=== PATIENT | female | born 1930 | race Caucasian/White ===

== ENCOUNTER 2018-02-09 10:06 | Inpatient (IN) | payer OTHER, MEDICAID ==
--- NOTE | 2018-02-09 10:15 | EDPHY ---
H & P Stated Complaint: fall, difficulty ambulating Time Seen by Provider: 02/09/18 10:08 HPI/ROS: CHIEF COMPLAINT: Left hip pain HISTORY OF PRESENT ILLNESS: The patient is an 87-year-old female who fell on Friday at home. She has had pain in her left hip ever since. She has been able to take a couple of steps with assistance. Today however she stated that it hurt too bad to get out of bed and had bowel movement in her bed. When paramedics arrived she had pain with movement and transfer. They gave her fentanyl after which she became sleepy and hypoxic and eventually vomited. They do not think that she aspirated. Her son is here with her and states that her primary complaint over last couple of days has been left hip and thigh pain. She is hypoxic here paramedics states that she was not hypoxic before the fentanyl. Severity: Moderate Modifying factors: None REVIEW OF SYSTEMS: Constitutional: denies: chills, fever, recent illness, recent injury EENTM: denies: blurred vision, double vision, nose congestion Respiratory: denies: cough, shortness of breath Cardiac: denies: chest pain, irregular heart rate, lightheadedness, palpitations Gastrointestinal/Abdominal: denies: abdominal pain, diarrhea, nausea, vomiting, blood streaked stools Genitourinary: denies: dysuria, frequency, hematuria, pain Musculoskeletal: See HPI Skin: denies: lesions, rash, jaundice, bruising Neurological: denies: headache, numbness, paresthesia, tingling, dizziness, weakness Hematologic/Lymphatic: denies: blood clots, easy bleeding, easy bruising Immunologic/allergic: denies: HIV/AIDS, transplant 10 systems reviewed and negative except as noted EXAM: GENERAL: Vomit on clothing, obese and in no acute distress. HEAD: Atraumatic, normocephalic. EYES: Pupils equal round and reactive to light, extraocular movements intact, sclera anicteric, conjunctiva are normal. ENT: TMs normal, nares patent, oropharynx clear without exudates. Moist mucous membranes. NECK: Normal range of motion, supple without lymphadenopathy or JVD. LUNGS: Breath sounds clear to auscultation bilaterally and equal. No wheezes rales or rhonchi. HEART: Regular rate and rhythm without murmurs, rubs or gallops. ABDOMEN: Soft, nontender, normoactive bowel sounds. No guarding, no rebound. No masses appreciated. BACK: No CVA tenderness, no spinal tenderness, step-offs or deformities EXTREMITIES: Left hip pain with movement or palpation. No obvious swelling, difficult to assess because of obesity. No knee or ankle pain., No clubbing or cyanosis. NEUROLOGICAL: Cranial nerves II through XII grossly intact. Normal speech, normal gait. 5/5 strength, normal movement in all extremities, normal sensation , normal reflexes PSYCH: Normal mood, normal affect. SKIN: Warm, dry, normal turgor, no visible rashes or lesions. Source: Patient Exam Limitations: No limitations - Medical/Surgical History Hx Asthma: No Hx Chronic Respiratory Disease: No Hx Diabetes: Yes Hx Cardiac Disease: No Hx Renal Disease: No Hx Cirrhosis: No Hx Alcoholism: No - Family History Significant Family History: No pertinent family hx - Social History Smoking Status: Never smoked Alcohol Use: Sober Constitutional: Initial Vital Signs Temperature (C) 36.8 C 02/09/18 10:09 Heart Rate 77 02/09/18 10:09 Respiratory Rate 18 02/09/18 10:09 Blood Pressure 140/62 H 02/09/18 10:09 O2 Sat (%) 90 L 02/09/18 10:09 O2 Delivery Mode Room Air O2 (L/minute) 2 Allergies/Adverse Reactions: No Known Allergies Allergy (Verified 02/09/18 11:44) Home Medications: Medication Instructions Recorded Cyanocobalamin [Vitamin B12 (*)] 1,000 mcg PO DAILY 02/09/18 Ergocalciferol [Vitamin D2 (*)] 50,000 unit PO SA 02/09/18 Ibuprofen [Motrin (*)] 200 mg PO DAILY PRN 02/09/18 Sertraline HCl [Zoloft 50mg (*)] 50 mg PO DAILY 02/09/18 Medical Decision Making - Diagnostics Imaging Results: Imaging Impressions Femur X-Ray 02/09/18 10:12 Impression: 1. Acute impacted left femoral neck fracture. 2. Intact femoral shaft. Pelvis X-Ray 02/09/18 10:12 Impression: Acute angulated and impacted left femoral neck fracture. Imaging: Discussed imaging studies w/ call center coordinator Radiologist ED Course/Re-evaluation: We discussed the x-ray results. Will admit to Medicine with orthopedic consultation. Patient is hypoxic while sleep but not awake. I discussed the case with the hospitalist who will admit. Discussed the case with Dr. Klaus hong. He will consult. Differential Diagnosis: Partial list of the Differential diagnosis considered include but were not limited to; pelvic fracture, hip fracture, femur fracture and although unlikely based on the history and physical exam, I also considered pneumonia, urinary tract infection, syncope, head injury. - Data Points Laboratory Results: Laboratory Results 02/09/18 10:15 02/09/18 10:00 02/09/18 02/09/18 02/09/18 10:15 10:15 10:00 WBC 12.10 10^3/uL H 10^3/uL (3.80-9.50) RBC 4.24 10^6/uL 10^6/uL (4.18-5.33) Hgb 13.3 g/dL g/dL (12.6-16.3) Hct 39.9 % % (38.0-47.0) MCV 94.1 fL fL (81.5-99.8) MCH 31.4 pg pg (27.9-34.1) MCHC 33.3 g/dL g/dL (32.4-36.7) RDW 14.0 % % (11.5-15.2) Plt Count 284 10^3/uL 10^3/uL (150-400) MPV 10.5 fL fL (8.7-11.7) Neut % (Auto) 80.2 % H % (39.3-74.2) Lymph % (Auto) 9.3 % L % (15.0-45.0) [place] % (Auto) 9.2 % % (4.5-13.0) Eos % (Auto) 0.4 % L % (0.6-7.6) Baso % (Auto) 0.5 % % (0.3-1.7) Nucleat RBC Rel Count 0.0 % % (0.0-0.2) Absolute Neuts (auto) 9.71 10^3/uL H 10^3/uL (1.70-6.50) Absolute Lymphs (auto) 1.12 10^3/uL 10^3/uL (1.00-3.00) Absolute Monos (auto) 1.11 10^3/uL H 10^3/uL (0.30-0.80) Absolute Eos (auto) 0.05 10^3/uL 10^3/uL (0.03-0.40) Absolute Basos (auto) 0.06 10^3/uL 10^3/uL (0.02-0.10) Absolute Nucleated RBC 0.00 10^3/uL 10^3/uL (0-0.01) Immature Gran % 0.4 % % (0.0-1.1) Immature Gran # 0.05 10^3/uL 10^3/uL (0.00-0.10) PT INR APTT Sodium 137 mEq/L mEq/L (135-145) Potassium 4.0 mEq/L mEq/L (3.5-5.2) Chloride 108 mEq/L mEq/L (97-110) Carbon Dioxide 20 mEq/l L mEq/l (22-31) Anion Gap 9 mEq/L mEq/L (6-14) BUN 18 mg/dL mg/dL (7-23) Creatinine 0.6 mg/dL mg/dL (0.6-1.0) Estimated GFR > 60 Glucose 168 mg/dL H mg/dL (70-100) Hemoglobin A1c Pending Estim Average Glucose Pending Calcium 8.3 mg/dL L mg/dL (8.5-10.4) 02/09/18 10:00 WBC RBC Hgb Hct MCV MCH MCHC RDW Plt Count MPV Neut % (Auto) Lymph % (Auto) [place] % (Auto) Eos % (Auto) Baso % (Auto) Nucleat RBC Rel Count Absolute Neuts (auto) Absolute Lymphs (auto) Absolute Monos (auto) Absolute Eos (auto) Absolute Basos (auto) Absolute Nucleated RBC Immature Gran % Immature Gran # PT 15.3 SEC H SEC (12.0-15.0) INR 1.19 H (0.83-1.16) APTT 31.7 SEC SEC (23.0-38.0) Sodium Potassium Chloride Carbon Dioxide Anion Gap BUN Creatinine Estimated GFR Glucose Hemoglobin A1c Estim Average Glucose Calcium Medications Given: Discontinued Medications Hydromorphone HCl (Dilaudid) 0.25 mg IVP EDNOW ONE Stop: 02/09/18 12:20 Last Admin: 02/09/18 12:21 Dose: 0.25 mg Departure - Departure Disposition: [facility] Clinical Impression: Closed left hip fracture Qualifiers: Encounter type: initial encounter Qualified Code(s): S72.002A - Fracture of unspecified part of neck of left femur, initial encounter for closed fracture Condition: Fair
[2018-02-09 10:35] LABS: PLATELET COUNT 284 10^3/uL (150-400)
[2018-02-09 10:48] LABS: INR 1.19 (0.83-1.16); PROTIME(PATIENT) 15.3 SEC (12.0-15.0)
[2018-02-09] MEDS ORDERED: HYDROmorphONE/DILAUDID 2 MG/ML INJ IVP ONE (12:19)
[2018-02-09] MEDS ORDERED: HYDROmorphONE/DILAUDID 1 MG/ML INJ ONE (12:20)
[2018-02-09] MEDS ORDERED: HYDROmorphONE/DILAUDID 1 MG/ML INJ IVP PRN (12:22)
[2018-02-09] MEDS ORDERED: ONDANSETRON 4 MG/2 ML VIAL IVP PRN (12:22)
[2018-02-09] MEDS ORDERED: ACETAMINOPHEN 325 MG TAB PO PRN (12:22)
[2018-02-09] MEDS ORDERED: ONDANSETRON DISINTEGRATING 4 MG TAB PO PRN (12:22)
[2018-02-09] MEDS ORDERED: oxyCODONE IR 5 MG TAB PO PRN ×2 (12:22→21:15)
--- NOTE | 2018-02-09 14:12 | PDGENHP ---
History and Physical - Chief Complaint Left hip pain - History of Present Illness 87 y/o female with history of dementia presents to the emergency room after sustaining a mechanical fall on Friday. This is my first encounter with the pt and she was evaluated in the emergency room with her son, Cristi, at the bedside. She is seen lying supine, sleeping but easy to arouse, wearing 2L NC sating at 92-93%. She does not normally wear oxygen. She is a poor historian and Cristi was able to give details as to her injury. On Friday night, she got up from the couch to lock the door and as she was coming back to the couch and started to sit down, she lost her balance and sat down/fell down on the floor. She landed awkwardly on her left side and with harder impact. She did not hit her head and no LOC. Cristi lives with her and cares for her every day during the evenings and nighttime 16/09. She normally uses a cane or walker to ambulate but after this injury, it took Cristi 2 1/2 hours to get her up off the floor and into bed. On Friday, he managed to get her to sit, stand, and take one or two steps before the pain was too intense and she had to get back into bed where she resided until today. Cristi would feed her in bed and she wore diapers. Early this morning, Cristi heard the pt gurgling and gasping for air - he rolled her over with difficulty and she vomited. The vomit was food from the night before. She vomited once again today while in the ambulance after receiving Fentanyl. She also supposedly became hypoxemic after receiving Fentanyl but this did alleviate some of her hip pain. Femur/pelvis x-ray: acute left femoral neck fracture She is being admitted for further work-up on her acute injury. Vital Signs 127/101 HR: 69 Respirations: 18 Temp: 36.8 O2: 95% History Information - Allergies/Home Medication List Allergies/Adverse Reactions: No Known Allergies Allergy (Verified 02/09/18 11:44) Home Medications: Cyanocobalamin [Vitamin B12 (*)] 1,000 mcg PO DAILY 02/09/18 [Last Taken ] Ergocalciferol [Vitamin D2 (*)] 50,000 unit PO SA 12/17/18 [Last Taken 02/07/18] Ibuprofen [Motrin (*)] 200 mg PO DAILY PRN 02/09/18 [Last Taken Unknown] Sertraline HCl [Zoloft 50mg (*)] 50 mg PO DAILY 02/09/18 [Last Taken 02/06/18] I have personally reviewed and updated: family history, medical history, social history, surgical history Past Medical History: Vitamin D Deficient, hyponatremia, PTSD, dementia, iron- deficient anemia - Surgical History Reports: no pertinent surgical hx - Family History Positive for: cancer Additional family history: Brother - brain cancer. Father - stomach cancer - Social History Smoking Status: Never smoked Alcohol Use: Sober Drug Use: None Additional social history: Son, Cristi, lives with her and cares for her. She also participates in [employer] in [place], she is in daycare Mon-Friday during the morning/afternoon. [facility] RN comes to care for her in the morning and then she is transferred to daycare until 4pm. Cristi is there at home waiting to take over care. Review of Systems Review of Systems: ROS: 10pt was reviewed & negative except for what was stated in HPI & below Constitutional: Reports: recent injury, weakness EENMT: Reports: no symptoms Cardiac: Reports: no symptoms Respiratory: Reports: no symptoms Gastrointestinal: Reports: vomitting Genitourinary: Reports: no symptoms Muscolosketal: Reports: back pain (Chronic), joint pain, joint swelling, muscle pain Skin: Reports: no symptoms Neurological: Reports: pre-existing deficit Hematologic/Lymphatic: Reports: no symptoms Immunologic/Allergy: Reports: no symptoms Physical Exam Physical Exam: Lab data and imaging reviewed Femur/pelvis x-ray: see HPI List WBC: 12.10 INR: 1.19 CO2: 20 BUN/Creatinine: 18/0.6 Na: 137 Ca: 8.3 K: 4.0 Hgb/Hct: 13.3/39.02 November 2017 A1c: 6.4% Temp Pulse Resp BP Pulse Ox 36.8 C 71 18 140/105 H 94 02/09/18 10:12 02/09/18 13:47 02/09/18 13:47 02/09/18 13:47 02/09/18 13:47 O2 (L/minute) 2 Constitutional: appears nourished, obese, uncomfortable Eyes: PERRL, anicteric sclera, EOMI Ears, Nose, Mouth, Throat: hearing normal, ears appear normal, no oral mucosal ulcers, dry mucous membranes Cardiovascular: regular rate and rhythym, no murmur, rub, or gallop, No edema Peripheral Pulses: 1+: dorsalis-pedis (L) (Radial 2+), 2+: dorsalis-pedis (R) ( Radial 2+) Respiratory: other (bilateral lower expiratory wheezes) Gastrointestinal: normoactive bowel sounds, soft, non-tender abdomen, no palpable masses Genitourinary: no bladder fullness, no bladder tenderness Skin: warm, normal color, no rashes or abrasions, no fluctuance, no induration, No mottled Musculoskeletal: joint tenderness (Left hip, L weak DF/PF), pain with ROM Neurologic: sensation intact bilaterally, CN II-XII Intact, other (A&Ox1 (person )) Psychiatric: interacting appropriately, not anxious, poor memory Lymph, Heme, Immunologic: no cervical LAD, no supraclavicular LAD Lab Data & Imaging Review 02/09/18 10:15 02/09/18 10:00 WBC 12.10 10^3/uL (3.80-9.50) H 02/09/18 10:15 RBC 4.24 10^6/uL (4.18-5.33) 02/09/18 10:15 Hgb 13.3 g/dL (12.6-16.3) 02/09/18 10:15 Hct 39.9 % (38.0-47.0) 02/09/18 10:15 MCV 94.1 fL (81.5-99.8) 02/09/18 10:15 MCH 31.4 pg (27.9-34.1) 02/09/18 10:15 MCHC 33.3 g/dL (32.4-36.7) 02/09/18 10:15 RDW 14.0 % (11.5-15.2) 02/09/18 10:15 Plt Count 284 10^3/uL (150-400) 02/09/18 10:15 MPV 10.5 fL (8.7-11.7) 02/09/18 10:15 Neut % (Auto) 80.2 % (39.3-74.2) H 02/09/18 10:15 Lymph % (Auto) 9.3 % (15.0-45.0) L 02/09/18 10:15 [place] % (Auto) 9.2 % (4.5-13.0) 02/09/18 10:15 Eos % (Auto) 0.4 % (0.6-7.6) L 02/09/18 10:15 Baso % (Auto) 0.5 % (0.3-1.7) 02/09/18 10:15 Nucleat RBC Rel Count 0.0 % (0.0-0.2) 02/09/18 10:15 Absolute Neuts (auto) 9.71 10^3/uL (1.70-6.50) H 02/09/18 10:15 Absolute Lymphs (auto) 1.12 10^3/uL (1.00-3.00) 02/09/18 10:15 Absolute Monos (auto) 1.11 10^3/uL (0.30-0.80) H 02/09/18 10:15 Absolute Eos (auto) 0.05 10^3/uL (0.03-0.40) 02/09/18 10:15 Absolute Basos (auto) 0.06 10^3/uL (0.02-0.10) 02/09/18 10:15 Absolute Nucleated RBC 0.00 10^3/uL (0-0.01) 02/09/18 10:15 Immature Gran % 0.4 % (0.0-1.1) 02/09/18 10:15 Immature Gran # 0.05 10^3/uL (0.00-0.10) 02/09/18 10:15 PT 15.3 SEC (12.0-15.0) H 02/09/18 10:00 INR 1.19 (0.83-1.16) H 02/09/18 10:00 APTT 31.7 SEC (23.0-38.0) 02/09/18 10:00 Sodium 137 mEq/L (135-145) 02/09/18 10:00 Potassium 4.0 mEq/L (3.5-5.2) 02/09/18 10:00 Chloride 108 mEq/L (97-110) 02/09/18 10:00 Carbon Dioxide 20 mEq/l (22-31) L 02/09/18 10:00 Anion Gap 9 mEq/L (6-14) 02/09/18 10:00 BUN 18 mg/dL (7-23) 02/09/18 10:00 Creatinine 0.6 mg/dL (0.6-1.0) 02/09/18 10:00 Estimated GFR > 60 02/09/18 10:00 Glucose 168 mg/dL (70-100) H 02/09/18 10:00 Calcium 8.3 mg/dL (8.5-10.4) L 02/09/18 10:00 Assessment & Plan Plan: 87 y/o female presents with a 4-day old left hip fracture, has been immobile since then, and possibly aspirated on vomit. 1. Left Hip fracture -Consult ortho: Dr. Enrique aware -NPO status for now until it is determined whether surgery will take place tonight or tomorrow -Pain control PO/IVP PRN - either Dilaudid IVP, Tylenol PO, or Ultram PO. Cautious using class IIs d/t respiratory depression. -NWB status -Mildly leukocytosis most likely in relation to inflammatory process rather than infectious. Will repeat CBC tomorrow. 2. Possible aspiration -CXR pending -Monitor oxygen levels 3. Diabetes -October 2017 A1c was 6.4%. Will repeat A1c. She currently does not use insulin or PO 4. Dementia -Does not take PO medications for this. Does take Zoloft for depression. Continue to monitor. Per her son Cristi, she brigitte ro. Diet: NPO VTE ppx: SCDs Code: Full Dispo: Admit to obs
[2018-02-09] MEDS ORDERED: NS 500 ML IV SCH (14:30)
--- NOTE | 2018-02-09 15:04 | HOSPPROG ---
Hospitalist Progress Note Assessment/Plan: Patient seen and examined, discussed with Brandie Pfeiffer. I agree with her note. Admitted after fall with hip fracture. Plan OR fixation per Dr Enrique. Objective: Vital Signs Temp Pulse Resp BP Pulse Ox 36.7 C 70 17 167/79 H 95 02/09/18 14:30 02/09/18 14:30 02/09/18 14:30 02/09/18 14:30 02/09/18 14:30 PT 15.3 SEC (12.0-15.0) H 02/09/18 10:00 INR 1.19 (0.83-1.16) H 02/09/18 10:00 ICD10 Worksheet Patient Problems: Problems Problem Status Onset Closed left hip fracture Acute
[2018-02-09] MEDS ORDERED: ceFAZolin 2 GM/DEXTROSE 100 ML IV ONE (15:19)
[2018-02-09] MEDS ORDERED: ROPIVACAINE 0.2% 80 MG, EPINEPHrine 0.2 MG, KETOROLAC TROMETHAMINE 30 MG, morphINE 10 M... IU ONE (15:19)
[2018-02-09] MEDS ORDERED: ACETAMINOPHEN 325 MG TAB PO ONE (15:19)
[2018-02-09] MEDS ORDERED: TRANEXAMIC ACID 1,000 MG in NS 100 ML IV ONE (15:19)
[2018-02-09] MEDS ORDERED: FAMOTIDINE 20 MG TAB PO ONE (15:19)
--- NOTE | 2018-02-09 15:23 | ASMTCMCOM ---
CM Note CM Note Notes: pt is a 87yo F with history of demetia presents after fall/ hip fracture. CM spoke with pt's PCP, Dr. Crump. [facility]. They requested to be contacted prior to discharge. Pt was last at [facility]. Per MD, pt may be appropriate for [facility] unit after discharge from here (depending on MD/Therapy Recommendations). Dr Crump reports she feels pt does best when she is home with her son's support. CM to follow. Plan: TBD (Home with [facility]/ family supports vs [facility]) Date Signed: 02/09/2018 03:22 PM Electronically Signed By:RENUKA Shelton
--- NOTE | 2018-02-09 15:57 | PDMN ---
Medical Necessity Medical necessity: MCG: S600 hip fx fx of femoral neck or S615 hip fx open repair--- ortho consult / sgy pend. pt presents with acute L femoral neck fx. X 4 days ago- immobile X 4 days poss aspirate, PMh Dm, further monitoring and eval needed. anticipate > 2 MN
[2018-02-09] MEDS ORDERED: LR 1,000 ML IV ONE (17:07)
[2018-02-09] MEDS ORDERED: HYDROmorphONE/DILAUDID 2 MG/ML INJ ONE (18:40)
[2018-02-09] MEDS ORDERED: HYDROmorphONE/DILAUDID 2 MG/ML INJ IVP PRN ×2 (19:00→21:15)
[2018-02-09] MEDS ORDERED: PROPOFOL 200 MG/20 ML VIAL ONE (20:01)
[2018-02-09] MEDS ORDERED: fentaNYL 100 MCG/2 ML INJ ONE ×2 (20:02→20:49)
--- NOTE | 2018-02-09 20:05 | PDANEPAE ---
ANE History of Present Illness left hip fracture ANE Past Medical History - Cardiovascular History Hx Hypertension: No Hx Arrhythmias: No Hx Chest Pain: No Hx Coronary Artery / Peripheral Vascular Disease: No Hx CHF / Valvular Disease: No - Pulmonary History Hx COPD: No Hx Asthma/Reactive Airway Disease: No Hx Recent Upper Respiratory Infection: No Hx Oxygen in Use at Home: No Hx Sleep Apnea: No Sleep Apnea Screening Result - Last Documented: Negative - Endocrine History Hx Diabetes: Yes Hypothyroid: No Hyperthyroid: No Obesity: moderate Endocrine History Comment: taken off metformin recently, now on no meds for DM2 - Renal History Hx Renal Disorders: No - Liver History Hx Hepatic Disorders: No - Neurological & Psychiatric Hx Neurological / Psychiatric History Comment: + Dementia - Other Health History Other Health History: +Frailty - Chronic Pain History Chronic Pain: No ANE Review of Systems Review of Systems: - Exercise capacity Exercise capacity: limited by disability ANE Patient History - Allergies Allergies/Adverse Reactions: No Known Allergies Allergy (Verified 02/09/18 11:44) - Home Medications Home medications: home medication list seen and reviewed Home Medications: Cyanocobalamin [Vitamin B12 (*)] 1,000 mcg PO DAILY 02/09/18 [Last Taken ] Ergocalciferol [Vitamin D2 (*)] 50,000 unit PO SA 02/09/18 [Last Taken 02/07/18] Ibuprofen [Motrin (*)] 200 mg PO DAILY PRN 02/09/18 [Last Taken Unknown] Sertraline HCl [Zoloft 50mg (*)] 50 mg PO DAILY 02/09/18 [Last Taken 02/06/18] - NPO status NPO Status: no food or drink >8 hours NPO Since - Liquids (Date): 02/09/18 NPO Since - Liquids (Time): 08:00 NPO Since - Solids (Date): 02/08/18 NPO Since - Solids (Time): 18:00 - Anes Hx Anes Hx: no prior problems - Smoking Hx Smoking Status: Never smoked - Alcohol Use Alcohol Use: Sober - Family Anes Hx Family Anes Hx: none ANE Labs/Vital Signs - Labs Result Diagrams: 02/09/18 10:15 02/09/18 10:00 - Vital Signs Vital Signs: reviewed preoperatively; see RN documention for details Blood Pressure: 141/86 Heart Rate: 68 Respiratory Rate: 18 O2 Sat (%): 96 Height: 167.64 cm Weight: 97.522 kg ANE Physical Exam - Airway Neck exam: FROM Mallampati Score: Class 2 Mouth exam: dentures - Pulmonary Pulmonary: no respiratory distress, reduced air movement - Cardiovascular Cardiovascular: regular rate and rhythym - ASA Status ASA Status: III, E ANE Anesthesia Plan Anesthesia Plan: general endotracheal anesthesia (Consent obtained from son, Cristi (POA). Discussed high risk of post op cognitive dysfunction given patient' s age, h/o dementia and acute fracture. Also discussed fact that patient is a [employer] witness and will not acccept any blood products under any circumstance. )
[2018-02-09] MEDS ORDERED: POLYMYXIN B SULFATE 500,000 UNIT/10 ML SYR IRR ONE (20:12)
[2018-02-09] MEDS ORDERED: BACITRACIN 50,000 UNITS/10 ML SYR IRR ONE (20:13)
[2018-02-09] MEDS ORDERED: ONDANSETRON 4 MG/2 ML VIAL ONE (20:47)
[2018-02-09] MEDS ORDERED: DEXAMETHASONE 4 MG/ML VIAL ONE ×2 (20:47)
[2018-02-09] MEDS ORDERED: ROCURONIUM 50 MG/5 ML VIAL ONE (20:47)
[2018-02-09] MEDS ORDERED: NALOXONE HCL 0.4 MG/ML INJ IVP PRN (21:10)
[2018-02-09] MEDS ORDERED: ACETAMINOPHEN 500 MG TAB PO PRN (21:15)
[2018-02-09] MEDS ORDERED: PHENYLEPHRINE HCL 100 MCG/ML SYR IVP PRN (21:15)
[2018-02-09] MEDS ORDERED: METOCLOPRAMIDE 10 MG/2 ML VIAL IVP PRN (21:15)
[2018-02-09] MEDS ORDERED: LR 500 ML IV PRN (21:15)
[2018-02-09] MEDS ORDERED: fentaNYL 100 MCG/2 ML INJ IVP PRN (21:15)
[2018-02-09] MEDS ORDERED: PROMETHAZINE HCL 25 MG/ML INJ IVP PRN (21:15)
[2018-02-09] MEDS ORDERED: MEPERIDINE 25 MG/0.5 ML AMP IVP PRN (21:15)
[2018-02-09] MEDS ORDERED: ALBUTEROL 3 ML DEYVIAL IH PRN (21:15)
[2018-02-09] MEDS ORDERED: LABETALOL HCL 20 MG/4 ML INJ IVP PRN (21:15)
[2018-02-09] MEDS ORDERED: GLYCOPYRROLATE 0.2 MG/1 ML VIAL ONE (22:25)
[2018-02-09] MEDS ORDERED: NEOSTIGMINE METHYLSULFATE 5 MG/5 ML SYR ONE (22:25)
--- NOTE | 2018-02-09 22:33 | POSTOPPROG ---
Post Op Note Date of Operation: 02/09/18 Surgeon: Amadou Enrique Clock Repairer: kuldip Anesthesia: GET(General Endotracheal) Pre-op Diagnosis: left femoral neck fx Post-op Diagnosis: same Indication: randi Procedure: left tish Inf/Abcess present in the surg proc area at time of surgery?: No Depth: Deep Incisional (Fascial) EBL: 100-500 Drains: Hemovac
--- NOTE | 2018-02-09 22:34 | SOAPPROG ---
LINDEN Progress Note Assessment/Plan: Assessment: left hip tish for femoral neck fx Plan: spoke with son (sonido) at length. I have recommeded tish given patients age and limited fx healing potential reviewed risks, benefits and alternatives. He wishes to proceed full consult will be dictated 02/09/18 22:33 Objective: Vital Signs Temp Pulse Resp BP Pulse Ox 36.7 C 68 18 141/86 H 96 02/09/18 18:52 02/09/18 21:10 02/09/18 21:10 02/09/18 21:10 02/09/18 21:10 PT 15.3 SEC (12.0-15.0) H 02/09/18 10:00 INR 1.19 (0.83-1.16) H 02/09/18 10:00 ICD10 Worksheet Patient Problems: Problems Problem Status Onset Closed left hip fracture Acute
[2018-02-10] MEDS: AMPICILLIN/SULBACTAM 3 GM in NS 100 ML IV SCH ×5 (01:13→17:15)
[2018-02-10] MEDS: ceFAZolin 2 GM/DEXTROSE 100 ML IV SCH ×2 (04:32→14:06)
[2018-02-10 05:01] LABS: PLATELET COUNT 267 10^3/uL (150-400)
--- NOTE | 2018-02-10 07:19 | PDIAF ---
- Diagnosis Diagnosis: left femoral neck fx Code Status: Full Code - Medication Management Discharge Medications: electronically signed and located in the Home Medication List. - Orders Services needed: Home Care, Physical Therapy, Occupational Therapy Home Care Face to Face: I certify that this patient was under my care and that I had the required [id number] encounter meeting the encounter requirements on the discharge day. My findings support the fact that the patient is homebound as defined in Home Care Face to Face Continued: CMS Chapter 7 Medicare Benefits Manual 30.1.1 , The condition of the patient is such that there exists a normal inability to leave home and consequently, leaving home would require a considerable and taxing effort. Diet Recommendation: no restrictions on diet Diet Texture: Regular Texture Diet Additional Instructions: TOTAL JOINT ARTHROPLASTY DISCHARGE INSTRUCTIONS 1. Your surgeon follows the [facility] protocol for reducing your risk of DVT (blood clots) following surgery. Medication will be ordered to prevent blood clots. A sudden increase in calf pain and/or swelling could indicate a blood clot in your leg. If this occurs, please call your surgeon or his/her construction project assistant. An ultrasound of the leg may be necessary to diagnose a blood clot. If you have conditions that make you a higher risk for blood clots, your surgeon may use more aggressive ways to prevent them. Notify your surgeon if you think you are a high risk for blood clots. 2. Wear your white surgical stockings (CLARENCE hose) for 2 weeks. This decreases your swelling and may help prevent blood clots. It is ok to remove CLARENCE hose at night time to give your legs a break. 3. Swelling and bruising in the surgical leg is common. If you feel that it is excessive, please notify your surgeon. 4. Elevate your surgical leg with the ankle above the hip several times every day. Please keep the leg straight when you elevate by putting pillows under your foot. Do not put pillows under your knee. This will make being able to fully straighten more difficult. This is uncomfortable, but try to do it as much as possible. 5. For total knee replacements use compressive wrap on your knee for 3-5 days after surgery, then you can discontinue it. 6. Use a walker or crutches for 1-2 weeks. Progress your weight-bearing as tolerated. You may start to use a cane when you feel stable and safe. 7. You will receive physical therapy instructions in the hospital. Continue those exercises at home. There are additional exercises in the total joint booklet you were given before surgery. Outpatient physical therapy will begin 7- 10 days after surgery. Please schedule this in advance. 8. Use ice on your knee at least 3-5 times every day for 30 minutes. This helps reduce pain and swelling. Also use it at night before falling asleep. 9. Leave your surgical dressing in place for 2 weeks. Your dressing is water resistant, but not waterproof. Cover it with Saran Wrap or Bwuxf-q-Hvok before showering. You may shower as soon as you feel safe entering a shower. If you notice bleeding from your incision 2 or 3 days after surgery, please notify your surgeon. 10. Due to narcotics, decreased activity and altered diet, most patients experience constipation after surgery. Use bkkj-nqv-vgqprte stool softeners while you are on narcotics. 11. You may drive a car when you are comfortable bearing weight, have good muscular control of your leg and are off narcotics. This usually occurs 2-4 weeks after surgery, depending on which leg was operated on. 12. If there are questions not addressed here, please refer the [facility] book given for more information. If you still have questions, please contact your surgeon s office. 13. If you have a life-threatening emergency, please call 911 and go to the emergency room immediately. For non-life threatening emergencies, please call your physicians office for advice before going to the emergency room. - Follow Up Care Current Providers and Referrals: Patient,NotPresent [Unknown] - As per Instructions Amadou Enrique MD [Medical Doctor] -
--- NOTE | 2018-02-10 07:20 | SOAPPROG ---
LINDEN Progress Note Assessment/Plan: Assessment: left hip tish for femoral neck fx Plan: spoke with son (sonido) at length. I have recommeded tish given patients age and limited fx healing potential reviewed risks, benefits and alternatives. He wishes to proceed full consult will be dictated stable continue pt/ot dvt precautions snf placement vs home care 02/09/18 22:33 02/10/18 07:19 Subjective: deferred Objective: Vital Signs Temp Pulse Resp BP Pulse Ox 36.6 C 70 18 107/56 L 94 02/10/18 04:00 02/10/18 04:00 02/10/18 04:00 02/10/18 04:00 02/10/18 04:00 Laboratory Results 02/10/18 04:45 02/10/18 04:45 02/09/18 02/10/18 02/11/18 05:59 05:59 05:59 Output Total 90 Balance -90 PT 15.3 SEC (12.0-15.0) H 02/09/18 10:00 INR 1.19 (0.83-1.16) H 02/09/18 10:00 dressing intact deferred as patient sleeping xray anatomic no fx or lucency ICD10 Worksheet Patient Problems: Problems Problem Status Onset Closed left hip fracture Acute
--- NOTE | 2018-02-10 09:50 | GCON ---
CHIEF COMPLAINT: Left femoral neck fracture. HISTORY OF PRESENT ILLNESS: The patient is an 87-year-old woman with dementia who was brought to the emergency department after sustaining a mechanical fall 3 days previously. She has had increased di fficulty moving around and was brought to the emergency department for further evaluation. X-rays de monstrated a left femoral neck fracture with displacement. Minimal pertinent history is obtained fro m her. PAST MEDICAL HISTORY: Hyponatremia, dementia, anemia. PAST SURGICAL HISTORY: See chart. MEDICATIONS: Vitamin replacement, Zoloft. ALLERGIES: No known drug allergies. SOCIAL HISTORY: Power of trust and estates attorney is her son. No tobacco. No alcohol. No drug use. She participa missy in [facility] in [place]. OBJECTIVE: GENERAL: This is an obese woman who is pleasant. She is lying supine in the bed. HEENT : Normocephalic, atraumatic. EXTREMITIES: Bilateral upper extremities are unremarkable. There is no step-off tenderness or crepitus. She has a shortened left lower extremity, pain with any attempte d range of motion, tenderness across the left hip. There is no crepitus tenderness throughout the re mainder of the lower extremity, across the thigh, knee, foot and ankle, or lower extremity, although she does have global subjective discomfort. X-rays demonstrate a complete displaced left femoral neck fracture. TREATMENT PLAN: I have recommended surgical stabilization with total hip replacement. Given her age and dementia, this is the most stable and function restoring procedure. I have outlined the surgica l risks, benefits, and alternatives with her son. He wishes to proceed, voices his consent, and writ ten consent was signed and placed in the patient's chart. /[id number]/MODL
--- NOTE | 2018-02-10 10:33 | HOSPPROG ---
Hospitalist Progress Note Assessment/Plan: 87 y/o female presents with a 4-day old left hip fracture, has been immobile since then, and possibly aspirated on vomit. * Left Hip fracture -s/p left MICHELLE * Possible aspiration (prior to her admission, concern she aspirated on vomit) -CXR shows left lower lobe infiltrated -Unasyn -she continues to be on 4 liters of oxygen -will get a repeat chest x ray tomorrow morning -reviewed her care w ST who did not note any aspiration -regular diet ordered *acute hypoxemia -possibly due to the above -fell this past Friday and was brought in yesterday. Can't r/o a PE, but a consideration *leukocytosis -repeat labs in a.m. to be sure trending down * Diabetes -October 2017 A1c was 6.4% -sliding scale w elevated glucoses * Dementia -not on treatment -per her son, she is back to her baseline *Depression -Zoloft *dvt prophylaxis: LMWH *Plan: met w her son today, she [facility], hopefully, can go to [facility] soon. Get a chest x ray in the morning, repeat labs. Subjective: Coco says her hip is hurting. Objective: Vital Signs Temp Pulse Resp BP Pulse Ox 36.4 C 69 18 117/63 92 02/10/18 07:42 02/10/18 07:42 02/10/18 07:42 02/10/18 07:42 02/10/18 07:42 Laboratory Results 02/10/18 04:45 02/10/18 04:45 02/09/18 02/10/18 02/11/18 05:59 05:59 05:59 Output Total 90 Balance -90 PT 15.3 SEC (12.0-15.0) H 02/09/18 10:00 INR 1.19 (0.83-1.16) H 02/09/18 10:00 - Physical Exam Constitutional: obese Eyes: PERRL Ears, Nose, Mouth, Throat: hard of hearing Cardiovascular: regular rate and rhythym Respiratory: no respiratory distress, reduced air movement Skin: warm, other (hip w swelling) Musculoskeletal: generalized weakness Psychiatric: interacting appropriately, poor memory, other (alert, oriented to herself and her son) ICD10 Worksheet Patient Problems: Problems Problem Status Onset Closed left hip fracture Acute
[2018-02-10] MEDS: SERTRALINE HCL 50 MG TAB PO SCH (10:34)
[2018-02-10] MEDS: oxyCODONE IR 5 MG TAB PO PRN ×3 (10:35→18:34)
[2018-02-10] MEDS: CYANO/VITAMIN B12 1000 MCG TAB PO SCH (10:35)
[2018-02-10] MEDS ORDERED: D50W 25 GM/50 ML SYR IVP PRN (10:59)
[2018-02-10] MEDS ORDERED: LACTULOSE 20 GM/30 ML UDCUP PO PRN (11:00)
[2018-02-10] MEDS ORDERED: BISACODYL 10 MG SUPP PR PRN (11:00)
[2018-02-10] MEDS ORDERED: MAGNESIUM HYDROXIDE 30 ML UDCUP PO PRN (11:00)
[2018-02-10] MEDS: ENOXAPARIN 40 MG/0.4 ML SYR SC SCH (12:00)
[2018-02-10] MEDS: ACETAMINOPHEN 500 MG TAB PO SCH ×2 (13:23→20:52)
[2018-02-10] MEDS: INSULIN LISPRO 100 UNIT/ML SC SCH ×2 (13:24→17:14)
[2018-02-10] MEDS: POLYETHYLENE GLYCOL 3350 17 GM PKT PO SCH (14:04)
[2018-02-10] MEDS: SENNOSIDES/DOCUSATE SODIUM TAB PO SCH (20:52)
--- NOTE | 2018-02-10 23:01 | POSTANESTH ---
Post Anesthetic Evaluation Cardiovascular Status: Normal, Stable Respiratory Status: Normal, Stable Level of Consciousness/Mental Status: Can Participate in Eval Pain Control: Adequate, Prn Tx Ordered Nausea/Vomiting Control: Adequate, Prn Tx Ordered Complications Possibly Related to Anesthesia: None Noted
[2018-02-11] MEDS: AMPICILLIN/SULBACTAM 3 GM in NS 100 ML IV SCH ×3 (00:20→16:11)
[2018-02-11] MEDS ORDERED: OLANZapine 2.5 MG TAB PO ONE (01:38)
[2018-02-11 04:41] LABS: PLATELET COUNT 275 10^3/uL (150-400)
[2018-02-11] MEDS: oxyCODONE IR 5 MG TAB PO PRN (05:29)
[2018-02-11] MEDS: ACETAMINOPHEN 500 MG TAB PO SCH ×3 (05:30→22:42)
--- NOTE | 2018-02-11 06:36 | SOAPPROG ---
LINDEN Progress Note Assessment/Plan: Assessment: left hip tish for femoral neck fx Plan: spoke with son (sonido) at length. I have recommeded tish given patients age and limited fx healing potential reviewed risks, benefits and alternatives. He wishes to proceed full consult will be dictated stable continue pt/ot dvt precautions snf placement vs home care will obtain new xrays 02/09/18 22:33 02/10/18 07:19 02/11/18 06:35 Subjective: pain Objective: Vital Signs Temp Pulse Resp BP Pulse Ox 36.3 C 81 16 122/57 H 95 02/11/18 00:00 02/11/18 00:00 02/11/18 00:00 02/11/18 00:00 02/11/18 00:00 Laboratory Results 02/11/18 04:00 02/11/18 04:00 02/10/18 02/11/18 02/12/18 05:59 05:59 05:59 Intake Total 1625 Output Total 90 30 Balance -90 1595 PT 15.3 SEC (12.0-15.0) H 02/09/18 10:00 INR 1.19 (0.83-1.16) H 02/09/18 10:[address] dressing intact [address]x in place diffuse nonfocal ttp intact pf,df,ehl sensation intact to light touch fiorella lower ext ICD10 Worksheet Patient Problems: Problems Problem Status Onset Closed left hip fracture Acute
--- NOTE | 2018-02-11 10:40 | ASMTCMCOM ---
CM Note CM Note Notes: CM spoke with pt's social problems specialist from [facility]. They said [facility] is preffered provider. CM submit referral for [facility] SNF. PT Rec SNF. CM to follow. Date Signed: 02/11/2018 10:38 AM Electronically Signed By:RENUKA Shelton
[2018-02-11] MEDS: traMADol 50 MG TAB PO PRN ×2 (11:07→22:39)
[2018-02-11] MEDS: INSULIN LISPRO 100 UNIT/ML SC SCH ×3 (11:13→18:48)
[2018-02-11] MEDS: ENOXAPARIN 40 MG/0.4 ML SYR SC SCH (11:19)
[2018-02-11] MEDS: SENNOSIDES/DOCUSATE SODIUM TAB PO SCH ×2 (11:19→22:42)
[2018-02-11] MEDS: CYANO/VITAMIN B12 1000 MCG TAB PO SCH (11:19)
[2018-02-11] MEDS: POLYETHYLENE GLYCOL 3350 17 GM PKT PO SCH (12:23)
--- NOTE | 2018-02-11 12:37 | HOSPPROG ---
Hospitalist Progress Note Assessment/Plan: 87 y/o female presents with a 4-day old left hip fracture, has been immobile since then, and possibly aspirated on vomit. * Left Hip fracture -s/p left MICHELLE * Possible aspiration (prior to her admission, concern she aspirated on vomit) -chest xray looks more like copd, w a low procalcitonin and she doesn't want an IV; will dc iv abx and see how she does -she continues to be on 4 liters of oxygen -reviewed her care w ST who did not note any aspiration -regular diet ordered *acute hypoxemia -possibly due to the above -fell this past Friday and was brought in Friday. -will get a CTA to r/o a PE (her O2 levels drop in the low 70's on room air) ( PE clinical probability is moderate) -tried to contact her son, Juan, but line was disconnected *leukocytosis -improving * Diabetes -October 2017 A1c was 6.4% -sliding scale w elevated glucoses * Dementia -not on treatment -per her son, she is back to her baseline -she became very agitated last night and became worse w Zyprexa -will do a trial of Seroquel tonight *Depression -Zoloft *dvt prophylaxis: LMWH *Plan: will attempt to reach her son again, will get a CTA to r/o a PE. She is very hypoxic and unable to tell me if she has been on oxygen at home. Subjective: Coco has no complaints. Objective: Vital Signs Temp Pulse Resp BP Pulse Ox 36.3 C 72 18 90/46 L 85 L 02/11/18 00:00 02/11/18 08:00 02/11/18 08:00 02/11/18 08:00 02/11/18 08:00 Laboratory Results 02/11/18 04:00 02/11/18 04:00 02/10/18 02/11/18 02/12/18 05:59 05:59 05:59 Intake Total 1625 Output Total 90 30 Balance -90 1595 PT 15.3 SEC (12.0-15.0) H 02/09/18 10:00 INR 1.19 (0.83-1.16) H 02/09/18 10:00 - Physical Exam Constitutional: chronically ill appearing Eyes: PERRL Ears, Nose, Mouth, Throat: hard of hearing Cardiovascular: regular rate and rhythym Respiratory: no respiratory distress, reduced air movement Gastrointestinal: normoactive bowel sounds Skin: warm Neurologic: other (alert,only oriented to herself) Psychiatric: poor judgement, poor memory ICD10 Worksheet Patient Problems: Problems Problem Status Onset Closed left hip fracture Acute
[2018-02-11] MEDS ORDERED: IOPAMIDOL (ISOVUE 370) 100 ML BTL IV ONE (15:55)
[2018-02-11] MEDS: SERTRALINE HCL 50 MG TAB PO SCH (17:39)
[2018-02-11] MEDS ORDERED: IPRATROPIUM/ALBUTEROL 3 ML DEYVIAL IH SCH (18:00)
[2018-02-11] MEDS: ENOXAPARIN 100 MG/ML SYR SC SCH (22:43)
[2018-02-12] MEDS: ACETAMINOPHEN 500 MG TAB PO SCH ×3 (05:24→21:45)
--- NOTE | 2018-02-12 06:11 | SOAPPROG ---
LINDEN Progress Note Assessment/Plan: Assessment: left hip tish for femoral neck fx Plan: spoke with son (sonido) at length. I have recommeded tish given patients age and limited fx healing potential reviewed risks, benefits and alternatives. He wishes to proceed full consult will be dictated stable continue pt/ot dvt precautions snf placement vs home care repeat xrays demonstrate anatomic hip replacement position without fracture d/w mayuri rodriguez last evening. Ok to anticoagulate patient given dx of PE. recommended lovenox given jehovas witness beliefs in case of bleeding complication. continue mobillization with pt and ot d/c to snf when stable 02/09/18 22:33 02/10/18 07:19 02/11/18 06:35 02/12/18 06:09 Objective: Vital Signs Temp Pulse Resp BP Pulse Ox 36.5 C 67 15 125/66 H 98 02/12/18 04:00 02/12/18 04:00 02/12/18 04:00 02/12/18 04:00 02/12/18 04:00 Laboratory Results 02/11/18 04:00 02/12/18 04:39 02/11/18 02/12/18 02/13/18 05:59 05:59 05:59 Intake Total 1625 700 Output Total 30 400 Balance 1595 300 PT 15.3 SEC (12.0-15.0) H 02/09/18 10:00 INR 1.19 (0.83-1.16) H 02/09/18 10:00 ICD10 Worksheet Patient Problems: Problems Problem Status Onset Closed left hip fracture Acute
[2018-02-12] MEDS ORDERED: PROTOCOL CALCIUM 1 DOSE IV PRN (08:07)
--- NOTE | 2018-02-12 09:13 | GOP ---
DATE OF OPERATION: 02/09/2018 SURGEON: Amadou Enrique MD PEDIATRIC PHYSICAL THERAPY ASSISTANT: Trina Smith RN PREOPERATIVE DIAGNOSIS: Left femoral neck fracture. POSTOPERATIVE DIAGNOSIS: Left femoral neck fracture. PROCEDURE PERFORMED: Left total hip arthroplasty. FINDINGS: SPECIMENS: To Pathology, the femoral head. INDICATIONS: The patient is an 87-year-old woman who was a Oriental orthodox. She is demented. She fell approximately 3 days previously. Given her persistent inability to move around, she was julianna t to the emergency department where x-rays demonstrated displaced femoral neck fracture. Given her a ge, dementia, I have recommended total hip replacement for most stable functional zoroastrian. Her s on, the [id number] understood the risks, benefits, and alternatives. Appropriate consent was signed and placed in patient's chart. DESCRIPTION OF PROCEDURE: The patient was identified in the preanesthesia area. The left hip clearl y demarcated as the operative site with indelible marker. She was given 2 g of Ancef intravenously i n route to the operative suite. In the OR, general endotracheal anesthesia was administered. The pe lvis and both lower extremities were sterilely prepped and draped in usual fashion. Attention was tu rned to the anterior aspect of the left hip. Appropriate time-out procedure was carried out. An anterior approach was made. Thick subcutaneous flaps were elevated. The tensor was elevated and the muscle retracted laterally. The underlying vascular structures identified, ligated, cauterized, and transected. The rectus elevated off the anterior surface of the capsule. Retractors were placed into an extracapsular position. T capsulotomy was then made. An additional cut was made to the fem oral neck and the fractured femoral neck was withdrawn, as was the remnants of the femoral head. The acetabulum was exposed with the use of retractors. The remaining labral and soft tissues were sharp ly excised. The acetabulum was reamed to a 52 mm diameter with an opening angle 45 degrees and antev ersion of 20 degrees. A 52 mm acetabular shell was then impacted, confirmed to be fully seated. A s jillian screw was placed superiorly and a 36 mm inner diameter X3 liner was placed and confirmed to be fully seated. Attention was then turned to the femur. The femur was delivered with the use of soft tissue retracti on and retractor placement. The proximal canal was opened. Serial broaching carried out to a size 5 stem. Intraoperative fluoroscopy was used for trial reduction. This demonstrated appropriate sizin g and positioning of the components. The final size 5 stem was then impacted, confirmed to be fully seated, and a 36 mm Biolox head was then placed across the trunnion. The hip was then reduced. Leg lengths were equal. Stability profile demonstrated full extension, external rotation to 90 degrees w ithout subluxation, flexion at 90 degrees with 45 degrees internal, external rotation without subluxa tion. The wound was copiously irrigated. A 10-Serbian PVC drain was placed. The tensor closed using 0 Vicr yl, subcutaneous tissue using 2-0 Monocryl, and the skin was stapled. Sterile dressing was applied. The patient was awakened, extubated, and taken to the recovery room in good and stable condition. TOTAL TOURNIQUET TIME: None. COMPLICATIONS: None. IMPLANTS: [place] Accolade II stem size 5, Biolox ceramic head 36 mm, a 52 mm acetabular shell, and a 0 degree X3 liner. /[id number]/MODL
[2018-02-12] MEDS: ENOXAPARIN 100 MG/ML SYR SC SCH ×2 (09:53→20:14)
[2018-02-12] MEDS: SENNOSIDES/DOCUSATE SODIUM TAB PO SCH ×2 (09:53→20:16)
[2018-02-12] MEDS: CYANO/VITAMIN B12 1000 MCG TAB PO SCH (09:53)
[2018-02-12] MEDS: INSULIN LISPRO 100 UNIT/ML SC SCH ×3 (09:53→18:36)
[2018-02-12] MEDS: POLYETHYLENE GLYCOL 3350 17 GM PKT PO SCH (09:54)
[2018-02-12] MEDS: SERTRALINE HCL 50 MG TAB PO SCH (09:54)
--- NOTE | 2018-02-12 13:20 | ECHO ---
[email or web address] [address] [address] Main: [phone] Fax: Transthoracic Echocardiogram Name: JANE WEINSTEIN MR#: [id number] Study Date: 02/12/2018 Study Time: 09:58 AM Date of : 1930 Age: 87 year(s) Height: 167.6 cm (66 in.) Weight: 97.52 kg (215 lb.) BSA: 2.06 m2 Gender: Female Examination: Echo Indication: L Hip Fx, Pulmonary Embolism, Eval RV Fx Image Quality: Contrast: Requested by: Rosalie Ramires BP: 123 mmHg/62 mmHg Heart Rate: Rhythm: Normal sinus rhythm Indication: L Hip Fx, Pulmonary Embolism, Eval RV Fx Procedure Staff Alley Cleaner: Jeff Mendez RDCS Reading Physician: Kel Riley MD Requesting Provider: Conclusions: Normal size left ventricle. Normal global systolic LV function. EF is 65 %. No regional wall motion abnormality. Unable to assess diastolic dysfunction. Mildly dilated right ventricle. Mildly reduced RV function. The right atrium is mildly dilated. Trivial mitral valve regurgitation. Moderate tricuspid regurgitation is present. Measurements: Chambers Valvular Assessment AV/MV Valvular Assessment TV/PV Normal Normal Normal Name Value Range Name Value Range Name Value Range Ao Parvin (MM): 3.3 cm (2.2 cm-3.7 AV Vmax: 1.09 m/s (1 m/s-1.7 TR Vmax: 3.83 mm/s ( - ) cm) m/s) TR PGmax: 59 mmHg ( - ) IVSd (2D): 0.8 cm (0.6 cm-1.1 AV maxP mmHg ( - ) syst. PAP: 64 mmHg ( - ) cm) LVOT Vmax: 0.68 m/s (0.7 m/s-1.1 PV Vmax: 0.86 m/s (0.6 m/s-0.9 LVDd (2D): 4.6 cm (3.9 cm-5.3 m/s) m/s) cm) MV E Vmax: 0.73 m/s ( - ) PV PGmax: 3 mmHg ( - ) LVDs (2D): 3.0 cm (2.1 cm-4 MV A Vmax: 1.01 m/s ( - ) cm) MV E/A: 0.72 ( - ) LVPWd (2D): 1.0 cm ( - ) LVEF (2D): 65 (>=54 %) RVDd(2D): 3.4 cm (1.9 cm-3.8 cmmm) Continued Measurements: Chambers Valvular Assessment AV/MV Valvular Assessment TV/PV Patient: JANE WEINSTEIN Study Date: 02/12/2018 Page 1 of 2 09:58 AM Name Value Name Value Name Value LADs Lon.8 cm MV E' Septal: 0.07 m/s CVP (est.): 5 mmHg LA Area: 14.6 cm2 MV E/E' Septal: 10.60 LA Volume: 43 ml MV E/E' Lateral: 10.40 LA Volume Index: 20.9 ml/m2 Findings: Left Ventricle: Normal size left ventricle. No LV hypertrophy. Normal global systolic LV function. EF is 65 %. No regional wall motion abnormality. Unable to assess diastolic dysfunction. Right Ventricle: Mildly dilated right ventricle. Mildly reduced RV function. Left Atrium: The left atrium is normal in size. Right Atrium: The right atrium is mildly dilated. Mitral Valve: The mitral valve is normal in appearance. Trivial mitral valve regurgitation. Aortic Valve: The aortic valve is tri-leaflet. There is no significant aortic valve regurgitation. Tricuspid Valve: The tricuspid valve appears normal. Moderate tricuspid regurgitation is present. Pulmonic Valve: The pulmonic valve is normal in appearance and function. Aorta: The aorta is normal. Pericardium: No pericardial effusion. (No Signature Object) Patient: JANE WEINSTEIN Study Date: 02/12/2018 Page 2 of 2 09:58 AM [id number]
--- NOTE | 2018-02-12 15:08 | ASMTCMCOM ---
CM Note CM Note Notes: CM has been in contact with MD, pt, pt's son, and Kenia ([phone]) from [facility]. Pt denied at [facility]. Accepted at [facility] but family does not want her to go there. CM sent referrals to [place] and [facility] because they are contracted with [facility] but pt's son says they are "too far". CM to follow. Plan: SNF, TBD which location. Date Signed: 02/12/2018 03:07 PM Electronically Signed By:RENUKA Shelton
--- NOTE | 2018-02-12 15:10 | HOSPPROG ---
Hospitalist Progress Note Assessment/Plan: 87 y/o female presents with a 4-day old left hip fracture, has been immobile since then, and possibly aspirated on vomit. * Left Hip fracture -s/p left MICHELLE * Possible aspiration (prior to her admission, concern she aspirated on vomit) -reviewed her care w ST who did not note any aspiration -regular diet ordered *left lower lobe subsegmental PE -treatment dose of LMWH -initiated Coumadin 02/12 *RV dilation -echo pending *acute hypoxemia, resolved -due to the above *9 mm thyroid nodule -son will have this w/u in the OP setting *leukocytosis -improving * Diabetes -October 2017 A1c was 6.4% -sliding scale w elevated glucoses * Dementia, quite significant -not on treatment -per her son, she is back to her baseline *Depression -Zoloft *dvt prophylaxis: on treatment *Plan: reviewed her care in detail with her son. She is a Yarsanism and would not want any blood products. Started on Coumadin. Message left w her doctor via [facility] to hopefully follow up. Son is also thinking of changing her from a DNR to FULL code. Will think about it tonight. Encouraged him to meet w the Palliative care team but he doesn't want this at this time. > 45 minutes talking w him. She has been denied at [facility]. He live in [place] to see if there is any available SNF's there. Subjective: Coco is tired. Objective: Vital Signs Temp Pulse Resp BP Pulse Ox 36.0 C 66 16 117/58 L 90 L 02/12/18 11:58 02/12/18 11:58 02/12/18 11:58 02/12/18 11:58 02/12/18 11:58 Laboratory Results 02/11/18 04:00 02/12/18 04:39 02/11/18 02/12/18 02/13/18 05:59 05:59 05:59 Intake Total 1625 700 Output Total 30 400 200 Balance 1595 300 -200 PT 15.3 SEC (12.0-15.0) H 02/09/18 10:00 INR 1.19 (0.83-1.16) H 02/09/18 10:00 - Physical Exam Constitutional: chronically ill appearing, uncomfortable Eyes: PERRL Ears, Nose, Mouth, Throat: hearing normal Cardiovascular: regular rate and rhythym Respiratory: no respiratory distress, reduced air movement Skin: warm, No normal color (pale) Musculoskeletal: generalized weakness Neurologic: other (alert, oriented to herself and her son only) Psychiatric: interacting appropriately, poor memory ICD10 Worksheet Patient Problems: Problems Problem Status Onset Closed left hip fracture Acute
[2018-02-12] MEDS ORDERED: WARFARIN SODIUM 5 MG TAB PO SCH (16:00)
[2018-02-13 05:03] LABS: INR 1.31 (0.83-1.16); PROTIME(PATIENT) 16.5 SEC (12.0-15.0)
[2018-02-13] MEDS: ACETAMINOPHEN 500 MG TAB PO SCH ×2 (05:51→14:09)
[2018-02-13 08:08] VITALS: BP 144/57
[2018-02-13] MEDS: INSULIN LISPRO 100 UNIT/ML SC SCH ×2 (09:28→13:14)
[2018-02-13] MEDS: SENNOSIDES/DOCUSATE SODIUM TAB PO SCH (09:41)
[2018-02-13] MEDS: ENOXAPARIN 100 MG/ML SYR SC SCH (09:41)
[2018-02-13] MEDS: SERTRALINE HCL 50 MG TAB PO SCH (09:41)
[2018-02-13] MEDS: CYANO/VITAMIN B12 1000 MCG TAB PO SCH (09:42)
[2018-02-13] MEDS: POLYETHYLENE GLYCOL 3350 17 GM PKT PO SCH (09:46)
--- NOTE | 2018-02-13 09:56 | ASMTCMCOM ---
CM Note CM Note Notes: CM spoke with Kenia ([phone]) at [facility]. Kenia gave CM son Cristi's cell phone number as [phone]. When pt ready for d/c to [facility], first choice for transportation is [facility] [phone]; second choice is [facility] [phone]. [facility] to be contacted when pt discharges; d/c papers to be faxed to [phone]. D/C Plan: [facility] Date Signed: 02/13/2018 09:55 AM Electronically Signed By:Kierra Wetzel
--- NOTE | 2018-02-13 11:23 | PDIAF ---
- Diagnosis Diagnosis: left femoral neck fx Code Status: Do Not Resuscitate - Medication Management Discharge Medications: electronically signed and located in the Home Medication List. - Orders Services needed: Home Care, Physical Therapy, Occupational Therapy Home Care Face to Face: I certify that this patient was under my care and that I had the required kwip-gx-schu encounter meeting the encounter requirements on the discharge day. My findings support the fact that the patient is homebound as defined in Home Care Face to Face Continued: CMS Chapter 7 Medicare Benefits Manual 30.1.1 , The condition of the patient is such that there exists a normal inability to leave home and consequently, leaving home would require a considerable and taxing effort. Diet Recommendation: no restrictions on diet Diet Texture: Regular Texture Diet, Thin Liquids, Meds Whole w/Liquids Additional Instructions: TOTAL JOINT ARTHROPLASTY DISCHARGE INSTRUCTIONS 1. Your surgeon follows the [facility] protocol for reducing your risk of DVT (blood clots) following surgery. Medication will be ordered to prevent blood clots. A sudden increase in calf pain and/or swelling could indicate a blood clot in your leg. If this occurs, please call your surgeon or his/her household assistant. An ultrasound of the leg may be necessary to diagnose a blood clot. If you have conditions that make you a higher risk for blood clots, your surgeon may use more aggressive ways to prevent them. Notify your surgeon if you think you are a high risk for blood clots. 2. Wear your white surgical stockings (CLARENCE hose) for 2 weeks. This decreases your swelling and may help prevent blood clots. It is ok to remove CLARENCE hose at night time to give your legs a break. 3. Swelling and bruising in the surgical leg is common. If you feel that it is excessive, please notify your surgeon. 4. Elevate your surgical leg with the ankle above the hip several times every day. Please keep the leg straight when you elevate by putting pillows under your foot. Do not put pillows under your knee. This will make being able to fully straighten more difficult. This is uncomfortable, but try to do it as much as possible. 5. For total knee replacements use compressive wrap on your knee for 3-5 days after surgery, then you can discontinue it. 6. Use a walker or crutches for 1-2 weeks. Progress your weight-bearing as tolerated. You may start to use a cane when you feel stable and safe. 7. You will receive physical therapy instructions in the hospital. Continue those exercises at home. There are additional exercises in the total joint booklet you were given before surgery. Outpatient physical therapy will begin 7- 10 days after surgery. Please schedule this in advance. 8. Use ice on your knee at least 3-5 times every day for 30 minutes. This helps reduce pain and swelling. Also use it at night before falling asleep. 9. Leave your surgical dressing in place for 2 weeks. Your dressing is water resistant, but not waterproof. Cover it with Saran Wrap or Mqtnr-r-Huve before showering. You may shower as soon as you feel safe entering a shower. If you notice bleeding from your incision 2 or 3 days after surgery, please notify your surgeon. 10. Due to narcotics, decreased activity and altered diet, most patients experience constipation after surgery. Use scfu-sqw-iqfewef stool softeners while you are on narcotics. 11. You may drive a car when you are comfortable bearing weight, have good muscular control of your leg and are off narcotics. This usually occurs 2-4 weeks after surgery, depending on which leg was operated on. 12. If there are questions not addressed here, please refer the [facility] book given for more information. If you still have questions, please contact your surgeon s office. 13. If you have a life-threatening emergency, please call 911 and go to the emergency room immediately. For non-life threatening emergencies, please call your physicians office for advice before going to the emergency room. - Labs/Radiology PT/INR Date: 02/15/18 (Q2 days until stable on coumadin) - Follow Up Care Current Providers and Referrals: Patient,NotPresent [Unknown] - As per Instructions Amadou Enrique MD [Medical Doctor] - (1-2 weeks)
--- NOTE | 2018-02-13 11:54 | ASMTDCNOTE ---
Case Management Discharge Discharge Order Complete? Answers: Yes Patient to Obtain Answers: Other Notes: [facility] Medications Transportation Arranged Answers: [facility] Stretcher Transport will Pick (Date 02/13/2018 12:00 AM & Time) Faxed Final Orders Answers: Yes Agency/Facility Transfer Answers: Yes Report Printed & Faxed to Receiving Agency Family Notified Answers: Yes Discharge Comments Notes: Pt d/[facility] to [facility]. [facility] and son notified. Date Signed: 02/13/2018 11:53 AM Electronically Signed By:Kierra Wetzel
--- NOTE | 2018-02-13 12:33 | GDS ---
ALL DIAGNOSES: 1. Left hip fracture, status post total hip arthroplasty. 2. Acute pulmonary embolus. 3. Hypoxia. 4. Leukocytosis. 5. Diabetes. 6. Dementia. 7. Depression. 8. 9 mm thyroid nodule. HOSPITAL COURSE: This is an 87-year-old female who presented with a fall 2 days prior to [facility]. She was found to have a left femoral neck fracture. She underwent a left MICHELLE on 02/09/2018, by Gali Enrique. Her hospital course was complicated by hypoxia. A left-sided pulmonary embolus was ident ified. Notably, she is [employer], and we are opting for anticoagulants which may be reversed . Because of this, she has been placed on low molecular weight heparin, weight-based dosing, which w ill be 100 mg b.i.d. She has been started on warfarin and has currently received 1 dose. Her INR on the day of discharge is 1.31. I have written to recheck INRs every 2 days until she is stable on Co umadin. She should continue Lovenox until her INR is greater than 2. On discharge, she has been on room air for approximately 24 hours. She should follow up with Dr. Enrique for her hip fracture in 1-2 weeks. She has been provided with i nstructions on managing this. She has had a 9 mm thyroid nodule identified. I spoke with her son about this. He will consider fol lowing up with Dr. Goncalves. She has significant dementia. She is at her baseline, per her son; however, she is not really orient ed to time or place. BILLING: I spent more than 30 minutes on the day of discharge coordinating care. /[id number]/MODL
[2018-02-14] MEDS ORDERED: ERGOCALCIFEROL 50,000 I.UNIT CAP PO SCH (09:00)
== END 2018-02-13 14:24 | DRG 469 ==
LOC: EDUNIT# → F3N 14:16 → OBSVTOIN 15:22
PROVIDERS: ADMIT Nurse Practitioner; ATTEND Student in an Organized Health Care Education/Training Program
PROC: 0SRB04A Replacement of Left Hip Joint with Ceramic on Polyethylene Synthetic Substitute, Uncemented, Open Approach (ICD-10-PCS; principal; 2018-02-09 18:45)
DX: S72.002A Fracture of unspecified part of neck of left femur, initial encounter for closed fracture (principal); W18.39XA Other fall on same level, initial encounter; Y92.018 Other place in single-family (private) house as the place of occurrence of the external cause; Y99.8 Other external cause status; I26.99 Other pulmonary embolism without acute cor pulmonale; E11.9 Type 2 diabetes mellitus without complications; E66.09 Other obesity due to excess calories; Z68.34 Body mass index [BMI] 34.0-34.9, adult; E04.1 Nontoxic single thyroid nodule; F03.90 Unspecified dementia, unspecified severity, without behavioral disturbance, psychotic disturbance, mood disturbance, and anxiety; F32.9 Major depressive disorder, single episode, unspecified
CPT/HCPCS: 92523-GN; 92526-GN; 92610-GN; 97162-GP; 97166-GO; 97530-GO; 97530-GP; 97535-GO; C1713; G8978-GP-CM; G8979-GP-CK; G8987-GO-CM; G8988-GO-CL; G8996-GN-CH; G8997-GN-CH; G8998-GN-CH; J0171; J0295; J0690; J1100; J1170; J1650; J1815; J1885; J2270; J2405; J2704; J2710; J2795; J3010; Q9967

== ENCOUNTER 2018-06-19 08:21 | Emergency (ER) | payer OTHER ==
--- NOTE | 2018-06-19 11:03 | EDPHY ---
H & P Stated Complaint: LLE pain Time Seen by Provider: 06/19/18 09:15 HPI/ROS: CHIEF COMPLAINT: Left leg pain HISTORY OF PRESENT ILLNESS: This is an 88-year-old female brought to the emergency department by ambulance. She has a history of dementia. She was found next to her bed in the snf where she resides ([facility]). She had been seen about 20 min prior to that so was not on the floor for any length of time. The patient tells me that she thinks she slid from the bed to the floor, however she cannot be considered a reliable historian. She does complain of pain in her left lower extremity. It is somewhat difficult to localize this pain with questioning. Initially she says the hip region but then states that her lower leg below the knee is painful. Of note, in January of 2018 she fell and broke her hip and underwent MICHELLE by Dr. Enrique. During that hospitalization she was found to have pulmonary embolus. Following that hospitalization she went to [facility], where she remains. REVIEW OF SYSTEMS: A ten system review of systems was performed and is negative with the exception of the items mentioned in the HPI. Past medical history: 1. Dementia 2. Pulmonary embolus 3. Depression/PTSD 4. Iron deficiency anemia 5. Hyponatremia Past surgical history: MICHELLE left hip January 2018 Family history: Patient unable to provide Social history: She currently resides at [facility]. She has a son in the area, he remains involved in her care. No tobacco or alcohol use. She is a Religion. General Appearance: Alert. Vital signs reviewed. Blood pressure 170/93. Head: Normocephalic atraumatic. Eyes: Pupils equal and round, no conjunctival injection, no discharge. Anicteric. ENT, Mouth: Mucous membranes are moist, no oropharyngeal erythema or edema. Neck: No lymphadenopathy, supple. No pain with palpation over the cervical spine in the midline. Respiratory: Lungs are clear to auscultation; no wheezes, rales, or rhonchi. Cardiovascular: Regular rate and rhythm; no murmur, rub, or gallop. Gastrointestinal: Abdomen is soft and nontender, no masses or organomegaly, bowel sounds normal. Skin: Warm and dry, no rashes on exposed skin, normal color. Back: Nontender to palpation over the thoracolumbar spine. No CVAT. Extremities: Mild tenderness over the left hip, well-healed surgical incision. Some tenderness with palpation of the anterior tibia on the left. No other bony tenderness. No obvious deformities noted. Neurological: Alert and answering questions. She is oriented to person only. Moving both upper extremities in the right lower extremity without difficulty. She reports pain when she moves her left lower extremity. ROSA ELENA. EOMI. Facial expressions symmetric. Tongue midline. Sensation intact over all 4 extremities to light touch. Psychiatric: Normal affect. - Personal History Current Tetanus/Diphtheria Vaccine: Unsure Current Tetanus Diphtheria and Acellular Pertussis (TDAP): Unsure - Medical/Surgical History Hx Asthma: No Hx Chronic Respiratory Disease: No Hx Diabetes: Yes Hx Cardiac Disease: No Hx Renal Disease: No Hx Cirrhosis: No Hx Alcoholism: No Hx HIV/AIDS: No Hx Splenectomy or Spleen Trauma: No Other PMH: DM, back surgery 1960's, alzheimers, hysterectomy, constipation, PE, dementia, lt hip replacement - Social History Smoking Status: Never smoked Constitutional: Initial Vital Signs Temperature (C) 36.6 C 06/19/18 08:29 Heart Rate 63 06/19/18 08:29 Respiratory Rate 16 06/19/18 08:29 Blood Pressure 170/93 H 06/19/18 08:29 O2 Sat (%) 93 06/19/18 08:29 O2 Delivery Mode Room Air O2 (L/minute) 1 Allergies/Adverse Reactions: No Known Allergies Allergy (Verified 02/09/18 11:44) Home Medications: Medication Instructions Recorded Acetaminophen [Tylenol 325mg (*)] 650 mg PO Q4HRS PRN 06/19/18 Acetaminophen [Tylenol ES 500 mg 1,000 mg PO TID 06/19/18 (*)] Ergocalciferol [Vitamin D2 (*)] 50,000 unit PO TUFR 06/19/18 Furosemide [Lasix 20 MG (*)] 20 mg PO MWF 06/19/18 Sennosides [Senna Lax] 8.6 mg PO BID PRN 06/19/18 Sertraline HCl [Zoloft 50mg (*)] 50 mg PO DAILY 06/19/18 Warfarin Sodium [Coumadin 2.5MG 2.5 mg PO SUMOTUTHSA@17 06/19/18 (*)] Warfarin Sodium [Coumadin 5MG (*)] 5 mg PO WEFR@17 06/19/18 Medical Decision Making ED Course/Re-evaluation: 88-year-old female with dementia who apparently fell from her bed to the floor. She underwent total hip arthroplasty on the left in January of 2018. She is complaining of left leg pain at this time. X-ray of the tib-fib obtained and negative/normal. X-ray of the left hip obtained and positive for mildly displaced left trochanteric fracture on the left. Surgical repair intact. I reviewed the films. In discussion with the patient's son, it is decided that she will return to [facility]. She is not ambulatory, as she has not been able to participate in rehabilitation following her hip fracture in January. This is because of her dementia. Her dementia keeps her from being able to remember and follow instructions from the physical therapist. I have spoken with this patient's primary care physician, Dr. Crump, who is also in agreement with this patient returning to [facility]. It is likely that she will deteriorate if hospitalized. Dr. Crump will follow up on Ms. Gan and will take care of pain management in the snf. Hopefully, the patient's pain can be controlled and she can be transferred comfortably. Per her son she is at her baseline in terms of cognition. Differential Diagnosis: I considered a differential diagnosis that includes but is not limited to hip or other bone fracture, disruption of hip arthroplasty, joint dislocation, sprain, strain, contusion, abrasion. - Data Points Laboratory Results: Laboratory Results 06/19/18 11:30 06/19/18 11:30 Medications Given: Discontinued Medications Fentanyl (Sublimaze) 75 mcg IVP EDNOW ONE Stop: 06/19/18 13:37 Last Admin: 06/19/18 13:59 Dose: Not Given Oxycodone/Acetaminophen (Percocet 5/325) 1 tab PO ONCE ONE Stop: 06/19/18 13:53 Last Admin: 06/19/18 13:58 Dose: 1 tab Departure - Departure Disposition: Home, Routine, Self-Care Clinical Impression: Trochanteric fracture of left femur Qualifiers: Encounter type: initial encounter Fracture type: closed Qualified Code(s): S72.102A - Unspecified trochanteric fracture of left femur, initial encounter for closed fracture Condition: Good Instructions: Hip Fracture (ED) Additional Instructions: She has a fracture of the left trochanter (top of the femur bone). This does not require surgery. It might be painful for her. Dr. Crump will order pain medicine as needed. Since she does not walk this can be safely managed at [facility]. She can do whatever activities are not painful for her. She should follow up with Dr. Enrique in the next two to three weeks. Referrals: Isaura Crump MD [Primary Care Provider] -
[2018-06-19 11:40] LABS: PLATELET COUNT 415 10^3/uL (150-400)
[2018-06-19 11:57] LABS: INR 1.77 (0.83-1.16); PROTIME(PATIENT) 19.8 SEC (12.0-15.0)
[2018-06-19 13:14] VITALS: BP 156/75
[2018-06-19] MEDS ORDERED: fentaNYL 100 MCG/2 ML INJ IVP ONE (13:36)
[2018-06-19] MEDS ORDERED: OXYCODONE/APAP 5/325 TAB PO ONE (13:52)
[2018-06-19] MEDS ORDERED: OXYCODONE/APAP 5/325 TAB ONE (13:55)
--- NOTE | 2018-06-19 17:46 | ASMTCMCOM ---
CM Note CM Note Notes: Received a call from Fabienne Mast (sp?) Branch Library Clerk ([phone]) with [facility] ([phone]); requesting info on pt's ED visit and discharge plan. Pt medically evaluated and found to have a minimally displaced greater trochanter fracture that is not operable. Pt stable for discharge back to [facility]. Due to needing to go to a meeting, CM requested the ED desk tech to arrange [facility] stretcher transport for pt to return to . CM provided ED RN w/facesheet, completed PCS form and also [facility]'s # to call and give RN report. CM available for further assistance if needed. Date Signed: 06/19/2018 05:45 PM Electronically Signed By:Shira Ga RN
--- NOTE | 2018-06-19 17:47 | ASDISCHSUM ---
Discharge Information Plan Status:SNF Medically Cleared to Leave: Discharge Date: D/C Disposition:Fdc Facility ADT D/C Disposition: Projected Discharge Date: Transportation at D/C:ALS/BLS Discharge Delay Reason: Follow-Up Date: Discharge Slot: Final Diagnosis: Placement Information Patient Contact Information Contact Name:DANYEL Relationship:Son Address:[address] [address] Work Phone: City:[place] Alternate Phone: State/Zip Code:[place] [address] Email: Financial Information Financial Class:Medicare Primary Plan Desc:MEDICARE INPATIENT Primary Plan Number:[id number] Secondary Plan Desc:[facility] Secondary Plan Number:[id number] Assessment Information [facility] CM Progress Note CM Note CM Note Notes: Received a call from Fabienne Mast (sp?) Curriculum Coordinator ([phone]) with [facility] ([phone]); requesting info on pt's ED visit and discharge plan. Pt medically evaluated and found to have a minimally displaced greater trochanter fracture that is not operable. Pt stable for discharge back to [facility]. Due to needing to go to a meeting, NERY requested the ED desk tech to arrange [facility] stretcher transport for pt to return to . provided ED RN w/facesheet, completed PCS form and also [facility]'s # to call and give RN report. available for further assistance if needed. Date Signed: 06/19/2018 05:45 PM Electronically Signed By:Shira Ga RN Intervention Information Intervention Type:Transportation Date of Service:06/19/2018 05:45 PM Patient Type:Inpatient Staff Member:DEANN Ga Sharon Hours:0.25 Discipline:General Scrap Worker Severity: Comment:PCS completed; copy provided to [facility]; o riginal to be scanned into pt's chart Intervention Type:Post Acute Communication Date of Service:06/19/2018 05:45 PM Patient Type:Inpatient Staff Member:DEANN Ga Sharon Hours:0.25 Discipline:General Scrap Worker Severity: Comment:Spoke w/[facility]
== END 2018-06-19 14:04 | disposition home or self-care (01) ==
LOC: EDUNIT# → UNDOADMIN 10:46
DX: S72.102A Unspecified trochanteric fracture of left femur, initial encounter for closed fracture (principal); Y92.122 Bedroom in nursing home as the place of occurrence of the external cause; W19.XXXA Unspecified fall, initial encounter; F03.90 Unspecified dementia, unspecified severity, without behavioral disturbance, psychotic disturbance, mood disturbance, and anxiety; Z86.711 Personal history of pulmonary embolism; Z96.642 Presence of left artificial hip joint